=== PATIENT | male | born 1960 | race Caucasian/White ===

== ENCOUNTER 2017-01-15 14:18 | Emergency (ER) | payer BC ==
[2017-01-15] MEDS ORDERED: OXYCODONE HCL5 M1 PO (14:30)
[2017-01-15] MEDS ORDERED: BUTALB-ACETAMI1 EAC1 PO (14:30)
[2017-01-15] MEDS ORDERED: HUMALOG100 UNITS/ (16:15)
[2017-01-15] MEDS ORDERED: CHLORTHALIDONE25 M1 PO (16:16)
[2017-01-15] MEDS ORDERED: IMITREX100 M2 PO (16:19)
== END 2017-01-15 16:30 ==
LOC: EDMED 14:18
DX: R51 Headache (principal); E10.9 Type 1 diabetes mellitus without complications; F17.210 Nicotine dependence, cigarettes, uncomplicated
CPT/HCPCS: J1200; J2765; J7030